=== PATIENT | female | born 1990 | race Two or more races ===

== ENCOUNTER 2016-05-10 10:31 | Emergency (ER) | payer OTHER ==
[2016-05-10 10:56] VITALS: BP 107/64; PULSE 77; TEMP 97.5; BMI 28.3
[2016-05-10] MEDS ORDERED: AZITHROMYCIN 1 GM PACKET PO ONE (12:07)
--- NOTE | 2016-05-10 12:13 | PDOC ---
History of Present Illness - General Chief Complaint: Vaginal Sxs Stated Complaint: POSSIBLE YEAST INFECTION Time Seen by Provider: 05/10/16 11:20 History Source: Patient Exam Limitations: No Limitations - History of Present Illness Initial Comments: 05/10/16 12:22 My Chief Complaint: Vaginal discharge History of Present Illness: Pt. is a 25-year-old female with a history of frequent vaginal yeast infections and renal calculi here today complaining of vaginal discharge were additional 3 days that is ordered was. Patient reports that she is sexually active and last time did not use a condom and is on Depo with her last menstrual cycle being December 2015. Patient denies any urinary symptoms or nausea or vomiting or abdominal pain. Patient reports that she used Monistat for the last few days however discharge has not lessened. 05/10/16 18:11 Timing/Duration: getting worse (for 3 days ) Severity: mild Associated Symptoms: reports: other (whitish/yellowish vaginal discharge) Past History - Past Medical History Allergies/Adverse Reactions: Allergies Allergy/AdvReac Type Severity Reaction Status Date / Time Sulfa (Sulfonamide Allergy Difficulty Verified 05/10/16 10:53 Antibiotics) Breathing Home Medications: Ambulatory Orders NK [No Known Home Medication] 05/10/16 Kidney Stones: Yes - Immunization History Immunization Up to Date: Yes - Psycho/Social/Smoking Cessation Hx Anxiety: No Suicidal Ideation: No Smoking History: Never smoked Have you smoked in the past 12 months: No Information on smoking cessation initiated: No Hx Alcohol Use: No Drug/Substance Use Hx: No Substance Use Type: None Review of Systems - Review of Systems Able to Perform ROS?: Yes Constitutional: No: Symptoms Reported HEENTM: No: Symptoms Reported Respiratory: No: Symptoms reported Cardiac (ROS): No: Symptoms Reported ABD/GI: No: Symptoms Reported : Yes: Discharge (whitish/yellowish discharge ). No: Burning, Dysuria, Frequency, Flank Pain, Hematuria, Incontinence, Pain, Urgency, Lesions Musculoskeletal: No: Symptoms Reported Integumentary: No: Symptoms Reported Neurological: No: Symptoms reported *Physical Exam - Vital Signs Last Vital Signs Temp Pulse Resp BP Pulse Ox 97.5 F L 77 18 107/64 100 05/10/16 10:53 05/10/16 10:53 05/10/16 10:53 05/10/16 10:53 05/10/16 10:53 - Physical Exam General Appearance: Yes: Appropriately Dressed Respiratory/Chest: positive: Lungs Clear, Normal Breath Sounds. negative: Chest Tender, Respiratory Distress Cardiovascular: positive: Regular Rhythm, Regular Rate, S1, S2 Female Pelvic Exam: positive: normal external exam, cervical os closed, discharge (yellowish white ). negative: normal adnexa, normal size ovaries, CMT , lesions, Bartholin mass, Scalene Gland, adnexal tenderness, uterus, vaginal bleeding Gastrointestinal/Abdominal: positive: Normal Bowel Sounds, Soft. negative: Tender, Organomegaly, Increased Bowel Sounds, Distended, Guarding, Rebound, Tenderness, Hepatomegaly, Spleenomegaly Integumentary: positive: Normal Color Neurologic: positive: Alert, Normal Response, Responsive ED Treatment Course - ADDITIONAL ORDERS Additional order review: Laboratory Results 05/10/16 11:29 Urine HCG, Qual Negative Medical Decision Making - Medical Decision Making 05/10/16 12:21 05/10/16 18:14 Pt. is a 25-year-old female with a history of frequent vaginal yeast infections and renal calculi here today complaining of vaginal discharge were additional 3 days that is ordered was. Patient reports that she is sexually active and last time did not use a condom and is on Depo with her last menstrual cycle being December 2015. Patient denies any urinary symptoms or nausea or vomiting or abdominal pain. Patient reports that she used Monistat for the last few days however discharge has not lessened. Unprotected sex vaginal discharge plan: hcg negative Chlamydia/gonorrhea amplification RPR Genital culture Will treat prophylactically with azithromycin 1 g by mouth now and Rocephin 250 mg IM now 05/10/16 18:15 *DC/Admit/Observation/Transfer Diagnosis at time of Disposition: Unprotected sex - Discharge Dispostion Disposition: HOME Condition at time of disposition: Stable - Patient Instructions Additional Instructions: Follow-up with your mailing jogger as soon as possible call here in 3 days for results of your labs done here Return to emergency room if symptoms worsen any pelvic pain, back pain fever nausea or vomiting Mother voiced understanding of discharge instructions and all questions were answered
[2016-05-10] MEDS ORDERED: AZITHROMYCIN 1 GM PACKET ONE (12:17)
--- NOTE | 2016-05-15 18:36 | PDOC ---
Patient Follow-up (Call Back) - Post ED Follow - Up Chief Complaint: Vaginal Sxs Condition at time of discharge: Stable Disposition at time of original discharge: HOME - Disposition Additional Instructions/Notes: pt called fast track asking for STD results. I spoke with pt after verifying identity and I gave her the results.
== END 2016-05-10 12:40 | disposition home or self-care (01) ==
LOC: JERFT 10:31
DX: Z11.3 Encounter for screening for infections with a predominantly sexual mode of transmission (principal)
CPT/HCPCS: 36415; 84703; 86593; 87070; 87186; 87205; 87491; 87591; 96372; 99281-25

== ENCOUNTER 2016-05-16 20:33 | Emergency (ER) | payer OTHER ==
[2016-05-16 21:05] VITALS: TEMP 98.2; BMI 28.3
[2016-05-16] MEDS ORDERED: SODIUM CHLORIDE 1,000 ML IV STA (21:05)
[2016-05-16] MEDS ORDERED: ONDANSETRON 4 MG/2 ML VIAL IVPB ONE (21:17)
--- NOTE | 2016-05-16 21:17 | PDOC ---
History of Present Illness - History of Present Illness Initial Comments: 05/16/16 22:12 Patient is a 25 year old female with significant medical hx of UTI, nephrolithiasis and migraines who is presenting to the ED with two days of suprapubic pain and right flank pain. The patient began having symptoms yesterday and she started taking macrobid that she had leftover from a past UTI. She also began taking pyridium OTC for her suprapubic pain. Today the patient developed right flank pain after urinating which has been progressive and persistent for the past six hours. She decided to come to the ED for worsening pain and further evaluation. The patient also complains of vaginal discharge. She was here last week and received testing for STDs which resulted negative. Now the patient is complains spotting. She is also on the depo-provera shot. Denies fever, chills, nausea, vomiting, hematuria, and frequency. Surgical Hx: Renal stent replacement and removal, lithotripsy (2009, 2015) Allergies: Sulfa, sumatriptan <Caitlyn Davis - Last Filed: 05/16/16 22:12> - General History Source: Patient, Old Records Exam Limitations: No Limitations <Ren Barber - Last Filed: 05/16/16 23:11> - General Stated Complaint: PAIN Time Seen by Provider: 05/16/16 20:58 Past History <Caitlyn Davis - Last Filed: 05/16/16 22:12> - Past Medical History Kidney Stones: Yes - Immunization History Immunization Up to Date: Yes - Psycho/Social/Smoking Cessation Hx Anxiety: No Suicidal Ideation: No Smoking History: Never smoked Have you smoked in the past 12 months: No Hx Alcohol Use: No Drug/Substance Use Hx: No Substance Use Type: None <Ren Barber - Last Filed: 05/16/16 23:11> - Past Medical History Allergies/Adverse Reactions: Allergies Allergy/AdvReac Type Severity Reaction Status Date / Time Sulfa (Sulfonamide Allergy Difficulty Verified 05/16/16 21:53 Antibiotics) Breathing sumatriptan Allergy Verified 05/16/16 21:52 Home Medications: Ambulatory Orders Levofloxacin [Levaquin -] 500 mg PO DAILY #14 tablet 05/16/16 Naproxen [Naprosyn -] 500 mg PO BID PRN #20 tablet 05/16/16 Ondansetron HCl [Zofran] 4 mg PO Q6H PRN #20 tablet 05/16/16 Oxycodone HCl/Acetaminophen [Percocet 5-325 mg Tablet] 1 tab PO Q6H PRN #20 tablet MDD 4 05/16/16 Review of Systems - Review of Systems Comments:: 05/16/16 22:25 GENERAL/CONSTITUTIONAL: No fever or chills. No weakness. HEAD, EYES, EARS, NOSE AND THROAT: No change in vision. No ear pain or discharge. No sore throat. CARDIOVASCULAR: No chest pain or shortness of breath. RESPIRATORY: No cough, wheezing, or hemoptysis. GASTROINTESTINAL: Suprapubic pain. No nausea, vomiting, diarrhea or constipation. GENITOURINARY: Right flank pain. No dysuria or frequency. MUSCULOSKELETAL: No joint or muscle swelling or pain. No neck or back pain. SKIN: No rash NEUROLOGIC: No headache, vertigo, loss of consciousness, or change in strength/ sensation. <Caitlyn Davis - Last Filed: 05/16/16 22:12> *Physical Exam - Vital Signs Last Vital Signs Temp Pulse Resp BP Pulse Ox 98.2 F 81 18 121/70 100 05/16/16 21:03 05/16/16 21:03 05/16/16 21:03 05/16/16 21:03 05/16/16 21:03 - Physical Exam Comments: 05/16/16 22:26 GENERAL: Awake, alert, and fully oriented, in no acute distress HEAD: No signs of trauma EYES: PERRLA, EOMI, sclera anicteric, conjunctiva clear ENT: Auricles normal inspection, hearing grossly normal, nares patent, oropharynx clear without exudates. Moist mucosa NECK: Normal ROM, supple, no lymphadenopathy, JVD, or masses LUNGS: Breath sounds equal, clear to auscultation bilaterally. No wheezes, and no crackles HEART: Regular rate and rhythm, normal S1 and S2, no murmurs, rubs or gallops ABDOMEN: Soft, suprapubic tenderness, normoactive bowel sounds. No guarding, no rebound. No masses EXTREMITIES: Normal range of motion, no edema. No clubbing or cyanosis. No cords, erythema, or tenderness NEUROLOGICAL: Cranial nerves II through XII grossly intact. Normal speech, normal gait MUSCULOSKELETAL: No CVA tenderness. SKIN: Warm, Dry, normal turgor, no rashes or lesions noted. ENDOCRINE: No increased thirst. No abnormal weight change. HEMATOLOGIC/LYMPHATIC: No anemia, easy bleeding, or history of blood clots. ALLERGIC/IMMUNOLOGIC: No hives or skin allergy. PELVIC: No adnexal tenderness, no CMT, cervical os closed, small amount of vaginal blood from cervical os, no discharge appreciated. <Caitlyn Davis - Last Filed: 05/16/16 22:12> - Vital Signs Last Vital Signs Temp Pulse Resp BP Pulse Ox 98.2 F 81 18 121/70 100 05/16/16 21:03 05/16/16 21:03 05/16/16 21:03 05/16/16 21:03 05/16/16 21:03 <Ren Barber - Last Filed: 05/16/16 23:11> ED Treatment Course - LABORATORY CBC & Chemistry Diagram: 05/16/16 21:15 05/16/16 21:15 - ADDITIONAL ORDERS Additional order review: Laboratory Results 05/16/16 05/16/16 21:15 21:00 Sodium 140 Potassium 3.8 Chloride 106 Carbon Dioxide 24 Anion Gap 10 BUN 10 D Creatinine 0.8 Creat Clearance w eGFR > 60 Random Glucose 72 L D Calcium 8.6 Total Bilirubin 0.3 D AST 10 L D ALT 15 Alkaline Phosphatase 75 D Total Protein 7.6 Albumin 3.8 Lipase 167 Urine Color Kait Urine Appearance Clear Urine pH 6.0 D Ur Specific [place] 1.004 Urine Protein Negative Urine Glucose (UA) Negative Urine Ketones Negative Urine Blood 2+ H Urine Nitrite Positive Urine Bilirubin Negative Urine Urobilinogen 4.0 e.u/dl H Ur Leukocyte Esterase Negative Urine RBC None Urine WBC <1 Ur Epithelial Cells Rare Urine Bacteria Rare Urine HCG, Qual Negative 05/16/16 21:15 RBC 4.17 MCV 82.5 MCHC 32.9 RDW 15.1 D MPV 9.5 Neutrophils % 64.6 Lymphocytes % 29.0 Monocytes % 5.4 Eosinophils % 0.5 Basophils % 0.5 - Medications Given in the ED: ED Medications Discontinued Medications Generic Name Dose Route Start Last Admin Trade Name Freq PRN Reason Stop Dose Admin Acetaminophen 975 mg 05/16/16 21:22 05/16/16 21:49 Tylenol - PO 05/16/16 21:23 Not Given ONCE ONE Sodium Chloride 1,000 mls @ 1,000 mls/hr 05/16/16 21:05 05/16/16 21:27 Normal Saline - IV 05/16/16 22:04 1,000 mls/hr ASDIR STA Administration Ketorolac Tromethamine 30 mg 05/16/16 21:39 05/16/16 21:48 Toradol Injection - IVPUSH 05/16/16 21:40 30 mg ONCE ONE Administration Ondansetron HCl 4 mg 05/16/16 21:17 05/16/16 21:27 Zofran Injection IVPB 05/16/16 21:18 4 mg ONCE ONE Administration <Caitlyn Davis - Last Filed: 05/16/16 22:12> - LABORATORY CBC & Chemistry Diagram: 05/16/16 21:15 05/16/16 21:15 <Ren Barber - Last Filed: 05/16/16 23:11> Medical Decision Making - Medical Decision Making 05/16/16 21:16 A portion of this note was documented by scribe services under my direction. I have reviewed the details of the note, within reason, and agree with the documentation with the following case summary and management plan written by me. Patient treated in the ED. Nursing notes are reviewed and incorporated into the medical decision-making. Vital signs reviewed. Peripheral IV access obtained by the nurse, laboratory studies are drawn and sent, reviewed and interpreted by myself. Vital Signs Temp Pulse Resp BP Pulse Ox 98.2 F 81 18 121/70 100 05/16/16 21:03 05/16/16 21:03 05/16/16 21:03 05/16/16 21:03 05/16/16 21:03 25-year-old female with history of yeast infections, urinary tract infections and kidney stones presents to the emergency department for right flank pain. Patient was seen here on May 10 for vaginal discharge. She was empirically treated with ceftriaxone and azithromycin. She had STD testing done which was negative. She had a swab performed and the patient was sent home. Patient in the last several days continued to develop dysuria and has taken Pyridium without much improvement. Noted today that the symptoms progressed her right flank. She is unsure if this is a kidney infection or kidney stones. Denies fevers or chills. Denies nausea or vomiting. Continues to report vaginal clearish discharge. Patient's vaginal swab upon my review demonstrates positive for group B Strep sensitive to fluoroquinoles. Will treat with abx. Urine test, labs, CT spiral to r/o renal colic. R/o pyelo. Reassess. 05/16/16 22:56 CAT scan reviewed. No renal stones identified. Mild dilatation of the right renal pelvis and proximal right ureter without evidence of ureter stone. Partially distended urinary bladder without intraluminal stones. CBC, BMP 05/16/16 21:15 05/16/16 21:15 CMP Sodium 140 mmol/L (136-145) 05/16/16 21:15 Potassium 3.8 mmol/L (3.5-5.1) 05/16/16 21:15 Chloride 106 mmol/L (98-107) 05/16/16 21:15 Carbon Dioxide 24 mmol/L (21-32) 05/16/16 21:15 Anion Gap 10 (8-16) 05/16/16 21:15 BUN 10 mg/dL (7-18) D 05/16/16 21:15 Creatinine 0.8 mg/dL (0.55-1.02) 05/16/16 21:15 Creat Clearance w eGFR > 60 (>60) 05/16/16 21:15 Random Glucose 72 mg/dL (74-106) L D 05/16/16 21:15 Calcium 8.6 mg/dL (8.5-10.1) 05/16/16 21:15 Total Bilirubin 0.3 mg/dL (0.2-1.0) D 05/16/16 21:15 AST 10 U/L (15-37) L D 05/16/16 21:15 ALT 15 U/L (12-78) 05/16/16 21:15 Alkaline Phosphatase 75 U/L (45-117) D 05/16/16 21:15 Total Protein 7.6 g/dl (6.4-8.2) 05/16/16 21:15 Albumin 3.8 g/dl (3.4-5.0) 05/16/16 21:15 Lipase 167 U/L (73-393) 05/16/16 21:15 Urine Test Results Urine Color Kait 05/16/16 21:00 Urine Appearance Clear 05/16/16 21:00 Urine pH 6.0 (5.0-8.0) D 05/16/16 21:00 Ur Specific [place] 1.004 (1.001-1.035) 05/16/16 21:00 Urine Protein Negative (NEGATIVE) 05/16/16 21:00 Urine Glucose (UA) Negative (NEGATIVE) 05/16/16 21:00 Urine Ketones Negative (NEGATIVE) 05/16/16 21:00 Urine Blood 2+ (NEGATIVE) H 05/16/16 21:00 Urine Nitrite Positive (NEGATIVE) 05/16/16 21:00 Urine Bilirubin Negative (NEGATIVE) 05/16/16 21:00 Ur Leukocyte Esterase Negative (NEGATIVE) 05/16/16 21:00 Urine RBC None /hpf (0-3) 05/16/16 21:00 Urine WBC <1 /hpf (3-5) 05/16/16 21:00 Ur Epithelial Cells Rare /hpf (FEW) 05/16/16 21:00 Urine Bacteria Rare /hpf (NONE SEEN) 05/16/16 21:00 Patient laboratory data reviewed. Patient has positive nitrites concerning for pyelonephritis. Given her past medical microbiology, Levaquin was initiated. We' ll need to weeks prescriptions. Patient's pain was improved with morphine. Return precautions given. I discussed the physical exam findings, ancillary test results and final diagnoses with the patient. I answered all of the patient's questions. The patient was satisfied with the care received and felt comfortable with the discharge plan and treatment plan. The patient will call their primary care physician within 24 hours to arrange follow-up and will return to the Emergency Department with any new, persistant or worsening symptoms. <Ren Barber - Last Filed: 05/16/16 23:11> *DC/Admit/Observation/Transfer - Attestations Scribe Attestion: 05/16/16 22:29 Documentation prepared by Caitlyn Davis, acting as medical photographer for Ren Barber MD. <Caitlyn Davis - Last Filed: 05/16/16 22:12> - Discharge Dispostion Admit: No <Ren Barber - Last Filed: 05/16/16 23:11> Diagnosis at time of Disposition: Pyelonephritis - Discharge Dispostion Disposition: HOME Condition at time of disposition: Improved - Prescriptions Prescriptions: Levofloxacin [Levaquin -] 500 mg PO DAILY #14 tablet Naproxen [Naprosyn -] 500 mg PO BID PRN #20 tablet PRN Reason: Pain Oxycodone HCl/Acetaminophen [Percocet 5-325 mg Tablet] 1 tab PO Q6H PRN #20 tablet MDD 4 PRN Reason: Pain Level 6-10 Ondansetron HCl [Zofran] 4 mg PO Q6H PRN #20 tablet PRN Reason: Nausea - Referrals Referrals: Kallie Gomez MD [Primary Care Provider] - - Patient Instructions Printed Discharge Instructions: DI for Kidney Infection Additional Instructions: Take 500 mg naproxen every 12 hours as needed for pain. For additional relief, take a tablet of percocet every 6 hours as needed for severe pain. This medication may make you drowsy, so please do not drink on this medication. Take the antibiotics (levaquin) once a day for 2 weeks. Please complete the course. Take 4 mg zofran every 6 hours as needed for nausea. Drink plenty of fluids and rest. Follow up with your doctors. - Post Discharge Activity Work/School Note: Back to Work
[2016-05-16] MEDS ORDERED: ACETAMINOPHEN 325 MG TABLET (FP) PO ONE (21:22)
[2016-05-16] MEDS ORDERED: ONDANSETRON 4 MG/2 ML VIAL ONE ×3 (21:23→23:26)
[2016-05-16 21:26] LABS: BASOPHIL 0.5 % (0-2.0); EOSINOPHIL 0.5 % (0-4.5); MCH 27.1 pg (25.7-33.7); MCHC 32.9 g/dl (32.0-36.0); MEAN CELL VOLUME 82.5 fl (80-96); MEAN PLT VOLUME 9.5 fl (7.5-11.1); NEUTROPHILS 64.6 % (42.8-82.8); PLATELET COUNT 242 K/MM3 (134-434); RDW 15.1 % (11.6-15.6); WHITE BLOOD COUNT 10.6 K/mm3 (4.0-10.0)
[2016-05-16] MEDS ORDERED: KETOROLAC TROMETHAMINE 30 MG/1 ML VIAL ONE (21:42)
[2016-05-16 21:46] LABS: URINE APPEARANCE CLEAR; URINE BILIRUBIN NEGATIVE (NEGATIVE); URINE COLOR AMBER; URINE GLUCOSE (UA) NEGATIVE (NEGATIVE); URINE KETONE NEGATIVE (NEGATIVE); URINE LEUK ESTERASE NEGATIVE (NEGATIVE); URINE NITRITE POSITIVE (NEGATIVE); URINE PROTEIN NEGATIVE (NEGATIVE); URINE UROBILINOGEN 4.0 E.U/dl E.U./dl (0.2-1.0)
[2016-05-16 21:47] LABS: URINE BLOOD 2+ (NEGATIVE)
[2016-05-16 21:51] LABS: ALBUMIN 3.8 g/dl (3.4-5.0); ANION GAP 10 (8-16); CALCIUM 8.6 mg/dL (8.5-10.1); CO2 24 mmol/L (21-32); GLUCOSE,RANDOM 72 mg/dL (74-106)
[2016-05-16 21:51] LABS: URINE BACTERIA RARE /hpf (NONE SEEN); URINE WBC <1 /hpf (3-5)
[2016-05-16 21:55] LABS: ALK PHOS 75 U/L (45-117); BILIRUBIN,TOTAL 0.3 mg/dL (0.2-1.0); CREATININE 0.8 mg/dL (0.55-1.02); SGOT/AST 10 U/L (15-37); SGPT/ALT 15 U/L (12-78); TOT PROT 7.6 g/dl (6.4-8.2)
[2016-05-16] MEDS ORDERED: morphine CARPU-JECT 4 MG/1 ML DISP.SYRIN IVPUSH ONE (22:13)
[2016-05-16] MEDS ORDERED: morphine CARPU-JECT 4 MG/1 ML DISP.SYRIN ONE (22:19)
[2016-05-16] MEDS ORDERED: LEVOFLOXACIN 500 MG IVPB 100 ML IVPB ONE ×2 (22:34→22:48)
[2016-05-16] MEDS ORDERED: ONDANSETRON 4 MG/2 ML VIAL IVPUSH ONE (23:29)
[2016-05-16 23:31] VITALS: BP 104/68; PULSE 78
== END 2016-05-16 23:31 | disposition home or self-care (01) ==
LOC: JER 20:33
PROC: 3E03329 Introduction of Other Anti-infective into Peripheral Vein, Percutaneous Approach (ICD-10-PCS; principal; 2016-05-16)
PROC: 3E0333Z Introduction of Anti-inflammatory into Peripheral Vein, Percutaneous Approach (ICD-10-PCS; 2016-05-16)
PROC: 3E033NZ Introduction of Analgesics, Hypnotics, Sedatives into Peripheral Vein, Percutaneous Approach (ICD-10-PCS; 2016-05-16)
DX: N10 Acute pyelonephritis (principal)
CPT/HCPCS: 36415; 74176; 80053; 81003; 81015; 83690; 84703; 85025; 87086; 99283-25

== ENCOUNTER 2016-05-25 17:21 | Emergency (ER) | payer OTHER ==
[2016-05-25 17:26] VITALS: BP 140/89; PULSE 74; TEMP 97.9; BMI 28.3
--- NOTE | 2016-05-25 18:07 | PDOC ---
History of Present Illness - History of Present Illness Initial Comments: 05/25/16 18:35 Patient is a 25 year old female with significant medical hx of nephrolithiasis and UTI who is presenting to the ED with progressive vaginal discomfort and discharge for the past two weeks. The patient was last seen here on 05/16/16 for suprapubic pain, right flank pain, vaginal discharge and spotting. The patient was sent home with a diagnosis of pylenephritis and discharged on levaquin, The patient reports she's been on levaquin for the past two weeks and hasn't felt relief of her vaginal symptoms. She was seen a week prior to her previous ED visit and received STD testings which resulted negative. The patient has an appointment with her drug worker next week; her doctor is associated with [facility]. Patient is on the depo-provera shot and hasnt had her menses since 12/2015. Denies fever, chills, nausea, vomiting, diarrhea. Surgical Hx: Renal stent replacement and removal, lithotripsy (2009, 2015) Allergies: Sulfa, sumatriptan PMD: Kallie Gomez MD <Caitlyn Davis - Last Filed: 05/25/16 19:42> <Cam Damon - Last Filed: 05/25/16 21:39> - General Chief Complaint: Vaginal Sxs Stated Complaint: VAGINAL DISCOMFORT Time Seen by Provider: 05/25/16 18:07 Past History <Caitlyn Davis - Last Filed: 05/25/16 19:42> - Past Medical History Disorders: (uti) Kidney Stones: Yes - Immunization History Immunization Up to Date: Yes - Psycho/Social/Smoking Cessation Hx Anxiety: No Suicidal Ideation: No Smoking History: Never smoked Have you smoked in the past 12 months: No Information on smoking cessation initiated: No Hx Alcohol Use: No Drug/Substance Use Hx: No Substance Use Type: None <Cam Damon - Last Filed: 05/25/16 21:39> - Past Medical History Allergies/Adverse Reactions: Allergies Allergy/AdvReac Type Severity Reaction Status Date / Time Sulfa (Sulfonamide Allergy Difficulty Verified 05/25/16 17:26 Antibiotics) Breathing sumatriptan Allergy Verified 05/25/16 17:26 Home Medications: Ambulatory Orders Levofloxacin [Levaquin -] 500 mg PO DAILY #14 tablet 05/16/16 Cefuroxime Axetil [Ceftin -] 500 mg PO Q12H #20 tablet 05/25/16 Review of Systems - Review of Systems Comments:: 05/25/16 18:45 CONSTITUTIONAL: Absent: fever, chills, diaphoresis, generalized weakness, malaise, loss of appetite HEENT: Absent: rhinorrhea, nasal congestion, throat pain, throat swelling, difficulty swallowing, mouth swelling, ear pain, eye pain, visual changes CARDIOVASCULAR: Absent: chest pain, syncope, palpitations, irregular heart rate, lightheadedness , peripheral edema RESPIRATORY: Absent: cough, shortness of breath, dyspnea with exertion, orthopnea, wheezing, stridor, hemoptysis GASTROINTESTINAL: Absent: abdominal pain, abdominal distension, nausea, vomiting, diarrhea, constipation, melena, hematochezia GENITOURINARY: Present: vaginal pain, vaginal discharge Absent: dysuria, frequency, urgency, hesitancy, hematuria, flank pain MUSCULOSKELETAL: Absent: myalgia, arthralgia, joint swelling SKIN: Absent: rash, itching, pallor HEMATOLOGIC/IMMUNOLOGIC: Absent: easy bleeding, easy bruising, lymphadenopathy, frequent infections ENDOCRINE: Absent: unexplained weight gain, unexplained weight loss, heat intolerance, cold intolerance NEUROLOGIC: Absent: headache, focal weakness or paresthesia, dizziness, unsteady gait, seizure, mental status changes, bladder or bowel incontinence. PSYCHIATRIC: Absent: anxiety, depression, suicidal or homicidal ideation, hallucinations <Ryan,Caitlyn - Last Filed: 05/25/16 19:42> *Physical Exam - Vital Signs Last Vital Signs Temp Pulse Resp BP Pulse Ox 97.9 F 74 18 140/89 99 05/25/16 17:24 05/25/16 17:24 05/25/16 17:24 05/25/16 17:24 05/25/16 17:24 - Physical Exam Comments: 05/25/16 18:46 GENERAL: Well developed, well nourished. Awake and alert. No acute distress. HEENT: Normocephalic, atraumatic. PERRLA, EOMI. No conjunctival pallor. Sclera are non- icteric. Moist mucous membranes. Oropharynx is clear. NECK: Supple. Full ROM. No JVD. Carotid pulses 2+ and symmetric, without bruits. No thyromegaly. No lymphadenopathy. CARDIOVASCULAR: Regular rate and rhythm. No murmurs, rubs, or gallops. Distal pulses are 2+ and symmetric. PULMONARY: No evidence of respiratory distress. Lungs clear to auscultation bilaterally. No wheezing, rales or rhonchi. ABDOMINAL: Soft. Non-tender. Non-distended. No rebound or guarding. No organomegaly. Normoactive bowel sounds. MUSCULOSKELETAL: Normal range of motion at all joints. No bony deformities or tenderness. No CVA tenderness. EXTREMITIES: No cyanosis. No clubbing. No edema. No calf tenderness. SKIN: Warm and dry. Normal capillary refill. No rashes. No jaundice. NEUROLOGICAL: Alert, awake, appropriate. Cranial nerves 2-12 intact. Normal speech. Gait is normal without ataxia. PSYCHIATRIC: Cooperative. Good eye contact. Appropriate mood and affect. PELVIC: Mild blood. Os is closed. No cervical motion tenderness. No adnexal tenderness. No palpable mass. <Caitlyn Davis - Last Filed: 05/25/16 19:42> - Vital Signs Last Vital Signs Temp Pulse Resp BP Pulse Ox 97.9 F 74 18 140/89 99 05/25/16 17:24 05/25/16 17:24 05/25/16 17:24 05/25/16 17:24 05/25/16 17:24 <Cam Damon - Last Filed: 05/25/16 21:39> ED Treatment Course - LABORATORY CBC & Chemistry Diagram: 05/25/16 18:13 05/25/16 18:13 <Caitlyn Davis - Last Filed: 05/25/16 19:42> - LABORATORY CBC & Chemistry Diagram: 05/25/16 18:13 05/25/16 18:13 <Cam Damon - Last Filed: 05/25/16 21:39> *DC/Admit/Observation/Transfer - Attestations Scribe Attestion: 05/25/16 18:46 Documentation prepared by Caitlyn Davis, acting as medical support assistant for Cam Damon MD. <Caitlyn Davis - Last Filed: 05/25/16 19:42> - Discharge Dispostion Admit: No <Cam Damon - Last Filed: 05/25/16 21:39> Diagnosis at time of Disposition: Urinary tract infection - Discharge Dispostion Disposition: HOME Condition at time of disposition: Stable - Prescriptions Prescriptions: Cefuroxime Axetil [Ceftin -] 500 mg PO Q12H #20 tablet - Referrals Referrals: Kallie Gomez MD [Primary Care Provider] - - Patient Instructions Printed Discharge Instructions: DI for Urinary Tract Infection (UTI)
[2016-05-25 18:42] LABS: BASOPHIL 0.3 % (0-2.0); EOSINOPHIL 0.3 % (0-4.5); MCH 26.3 pg (25.7-33.7); MCHC 31.9 g/dl (32.0-36.0); MEAN CELL VOLUME 82.3 fl (80-96); MEAN PLT VOLUME 9.4 fl (7.5-11.1); NEUTROPHILS 62.6 % (42.8-82.8); PLATELET COUNT 213 K/MM3 (134-434); RDW 15.9 % (11.6-15.6)
[2016-05-25 19:08] LABS: URINE APPEARANCE CLOUDY; URINE BILIRUBIN NEGATIVE (NEGATIVE); URINE COLOR YELLOW; URINE GLUCOSE (UA) NEGATIVE (NEGATIVE); URINE KETONE 1+ (NEGATIVE); URINE NITRITE NEGATIVE (NEGATIVE); URINE UROBILINOGEN NEGATIVE E.U./dl (0.2-1.0)
[2016-05-25 19:11] LABS: URINE BLOOD 2+ (NEGATIVE); URINE LEUK ESTERASE 3+ (NEGATIVE); URINE PROTEIN 1+ (NEGATIVE)
[2016-05-25 19:39] LABS: ALBUMIN 4.1 g/dl (3.4-5.0); ALK PHOS 73 U/L (45-117); ANION GAP 11 (8-16); BILIRUBIN,TOTAL 0.6 mg/dL (0.2-1.0); CALCIUM 9.1 mg/dL (8.5-10.1); CO2 26 mmol/L (21-32); CREATININE 0.8 mg/dL (0.55-1.02); GLUCOSE,RANDOM 72 mg/dL (74-106); SGOT/AST 88 U/L (15-37); SGPT/ALT 31 U/L (12-78); TOT PROT 7.9 g/dl (6.4-8.2)
[2016-05-25 19:44] LABS: URINE WBC 16-20 /hpf (3-5)
[2016-05-25 19:45] LABS: URINE BACTERIA MODERATE /hpf (NONE SEEN)
[2016-05-25] MEDS ORDERED: CEFTRIAXONE 1 GM in DEXTROSE 5%-WATER - 50 ML IVPB ONE (20:53)
[2016-05-25] MEDS ORDERED: CEFTRIAXONE 50 ML ONE (20:57)
== END 2016-05-25 21:48 | disposition home or self-care (01) ==
LOC: JER 17:21
DX: N39.0 Urinary tract infection, site not specified (principal)
CPT/HCPCS: 36415; 80053; 81003; 81015; 84703; 85025; 87086; 87491; 87591; 96365; 99283-25

== ENCOUNTER 2024-02-17 07:39 | Emergency (ER) | payer OTHER ==
[2024-02-17 07:47] VITALS: TEMP 97.8; BMI 29.9
[2024-02-17] MEDS ORDERED: ACETAMINOPHEN INJECTION 100 ML ONE (09:27)
[2024-02-17 09:30] LABS: BASO % 0.5 % (0-2.0); EOS % 0.7 % (0-4.5); HEMATOCRIT 35.1 % (32.4-45.2); HEMOGLOBIN 12.1 GM/dL (10.7-15.3); LYMPH % 26.4 % (8-40); MCH 31.3 pg (25.7-33.7); MCHC 34.5 g/dl (32.0-36.0); MEAN CELL VOLUME 90.8 fl (80-96); MONO % 4.1 % (3.8-10.2); NEUT % 68.3 % (42.8-82.8); PLATELET COUNT 209 10^3/uL (134-434); RBC 3.87 M/mm3 (3.60-5.2); RDW 14.2 % (11.6-15.6); WHITE BLOOD COUNT 5.6 K/mm3 (4.0-10.0)
[2024-02-17] MEDS: SODIUM CHLORIDE 500 ML IV ONE (09:33)
[2024-02-17] MEDS: ACETAMINOPHEN 1000 MG/100 ML BAG IVPB ONE (09:34)
[2024-02-17 09:48] LABS: INR 1.06 (0.83-1.09)
[2024-02-17 09:50] LABS: ACTIVATED PTT 31.4 SECONDS (25.2-36.5)
[2024-02-17 09:54] LABS: EPI CELLS 7 /uL (0-25.1); HYALINE CASTS 0 /uL (0-3.1); PH,URINE 6.5 (5.0-8.0); URINE APPEARANCE CLEAR; URINE BACTERIA 69 /uL (0-1359); URINE BILIRUBIN NEGATIVE (NEGATIVE); URINE COLOR YELLOW; URINE GLUCOSE (UA) NEGATIVE (NEGATIVE); URINE KETONE NEGATIVE (NEGATIVE); URINE LEUK ESTERASE NEGATIVE (NEGATIVE); URINE NITRITE NEGATIVE (NEGATIVE); URINE PROTEIN NEGATIVE (NEGATIVE); URINE RBC 5 /uL (0-23.9); URINE UROBILINOGEN 0.2 mg/dL (0.2-1.0); URINE WBC 2 /uL (0-25.8)
[2024-02-17 09:54] LABS: POTASSIUM 4.1 mmol/L (3.5-5.1)
[2024-02-17 09:56] LABS: CALCIUM 8.8 mg/dL (8.5-10.1)
[2024-02-17 09:57] LABS: ALBUMIN 3.9 g/dl (3.4-5.0); BLOOD UREA NITROGEN 6.3 mg/dL (7-18)
[2024-02-17 10:00] LABS: CREATININE 0.6 mg/dL (0.55-1.3)
[2024-02-17 10:01] LABS: BILIRUBIN,TOTAL 0.5 mg/dL (0.2-1)
[2024-02-17 10:03] LABS: TOT PROT 7.7 g/dl (6.4-8.2)
[2024-02-17 12:50] VITALS: BP 114/74; PULSE 72; RESP 16
[2024-02-19 14:50] LABS: HIV INTERPRETATION NEGATIVE (NEGATIVE)
== END 2024-02-17 12:51 | disposition home or self-care (01) ==
LOC: JER 07:39
PROC: 3E033NZ Introduction of Analgesics, Hypnotics, Sedatives into Peripheral Vein, Percutaneous Approach (ICD-10-PCS; principal; 2024-02-17)
PROC: 3E0337Z Introduction of Electrolytic and Water Balance Substance into Peripheral Vein, Percutaneous Approach (ICD-10-PCS; 2024-02-17)
DX: N93.9 Abnormal uterine and vaginal bleeding, unspecified (principal); R53.83 Other fatigue; R07.89 Other chest pain; R06.02 Shortness of breath; R11.0 Nausea; R30.0 Dysuria
CPT/HCPCS: 36415; 76817-TC; 80053; 81003; 84702; 85025; 85610; 85730; 86803; 87086; 87389; 93005; 93010; 96361; 96374; 99285-25; J0131